=== PATIENT | female | born 1990 | race American Indian/Alaskan Native ===

== ENCOUNTER 2019-05-27 20:16 | Inpatient (IN) | payer BC ==
[2019-05-27] MEDS ORDERED: OXYTOCIN DRIP 30,000 MILLIUNITS/500 ML BAG IV ONE (23:41)
[2019-05-27] MEDS ORDERED: AMPICILLIN/NS 2 GM/100 ML 2 GM/100 ML BAG IV ONE (23:43)
[2019-05-27] MEDS ORDERED: BUTORPHANOL 2 MG/1 ML INJ IV PRN (23:43)
[2019-05-27] MEDS ORDERED: LACTATED RINGERS 1,000 ML IV SCH (23:45)
[2019-05-27 23:55] LABS: Basophils # (Auto) 0.1 K/mm3 (0.0-0.1); Basophils % (Auto) 0.6 % (0.0-1.8); Eosinophils # (Auto) 0.1 K/mm3 (0.0-0.4); Eosinophils % (Auto) 0.7 % (0.0-4.3); Hematocrit 34.1 % (30.3-42.9); Hemoglobin 11.6 gm/dl (10.1-14.3); Lymphocytes # (Auto) 1.6 K/mm3 (1.2-5.4); Lymphocytes % (Auto) 16.5 % (13.4-35.0); Mean Corpuscular HGB Conc 34 % (30-34); Mean Corpuscular Volume 94 fl (79-97); Monocytes # (Auto) 0.8 K/mm3 (0.0-0.8); Monocytes % (Auto) 7.8 % (0.0-7.3); Platelet Count 167 K/mm3 (140-440); Red Blood Count 3.62 M/mm3 (3.65-5.03); Red Cell Distribution Width 13.9 % (13.2-15.2)
--- NOTE | 2019-05-28 07:38 | History and Physical Report ---
History of Present Illness Date of examination: 05/28/19 Date of admission: 05/27/19 20:16 Chief complaint: Induction of labor History of present illness: Pt is a 28yo BF EDC 06/14/19; EGA 37 4/7 weeks presents for induction of labor per [facility] due to Umbilical vein varix. She received care at [facility] since 14 weeks and co-managed by [facility] for Umbilical vein varix. records are available, but [facility] records are not available and GBS is unknown. Past History Past Medical History: no pertinent history Past Surgical History: no surgical history Social history: no significant social history, - Obstetrical History Expected Date of Delivery: 06/14/19 Actual Gestation: 37 Week(s) 4 Day(s) : 1 Medications and Allergies Allergies Allergy/AdvReac Type Severity Reaction Status Date / Time No Known Allergies Allergy Unverified 05/27/19 21:02 Home Medications Medication Instructions Recorded Confirmed Last Taken Type No Known Home Medications [No 05/28/19 05/28/19 Unknown History Reported Home Medications] Active Meds: Active Medications Butorphanol Tartrate (Stadol) 1 mg IV Q2H PRN PRN Reason: Pain, Moderate (4-6) Lactated Ringer's (Lactated Ringers) 1,000 mls @ 125 mls/hr IV DIRECT GINO Last Admin: 05/28/19 00:48 Dose: 125 mls/hr Documented by: Oxytocin/Sodium Chloride (Pitocin/Ns 30 Unit/500ml) 30,000 milliunits in 500 mls @ 1 mls/hr IV DIRECT ONE; Protocol Stop: 06/17/19 19:40 Last Titration: 05/28/19 04:17 Dose: 4 milliunits/min, 4 mls/hr Documented by: Review of Systems All systems: negative - Vital Signs Vital signs: Vital Signs Pulse BP 71 108/77 05/27/19 21:59 05/27/19 21:59 Temp Pulse Resp BP Pulse Ox 98.8 F 65 18 111/83 05/27/19 22:00 05/28/19 07:01 05/27/19 22:00 05/28/19 07:01 - Physical Exam Breasts: Positive: deferred Cardiovascular: Regular rate Lungs: Positive: Clear to auscultation Abdomen: Positive: normal appearance Genitourinary (Female): Positive: normal external genitalia Vagina: Positive: normal moisture Uterus: Positive: enlarged Extremities: Positive: normal - Obstetrical FHR: category 1 Uterine Contraction Monitor Mode: External Cervical Dilatation: 2 (per nurse) Cervical Effacement Percentage: 50 (per nurse) station: -2 Uterine Contraction Pattern: Irregular Uterine Tone Measurement Phase: Contraction Uterine Contraction Intensity: Mild Results Result Diagrams: 05/27/19 22:56 Abnormal lab results 05/27/19 Range/Units 22:56 RBC 3.62 L (3.65-5.03) M/mm3 [place] % (Auto) 7.8 H (0.0-7.3) % Seg Neutrophils % 74.4 H (40.0-70.0) % All other labs normal. Assessment and Plan - Patient Problems (1) 37 weeks gestation of Onset Date: 05/28/19 Current Visit: Yes Status: Acute Plan to address problem: A: IUP @ 37 4/7 weeks Umbilical vein varix - per [facility] Unknown GBS P: Admit for pitocin induction of labor IV Ampicillin
[2019-05-28] MEDS ORDERED: TERBUTALINE 1 MG/1 ML INJ SUB-Q PRN (08:00)
[2019-05-28] MEDS ORDERED: TERBUTALINE 1 MG/1 ML INJ IVP PRN (08:00)
[2019-05-28] MEDS ORDERED: OXYTOCIN DRIP 30 UNITS/500 ML BAG IV SCH ×2 (08:00)
[2019-05-28] MEDS ORDERED: ONDANSETRON 4 MG/2 ML INJ IV PRN ×2 (08:00→18:02)
[2019-05-28] MEDS ORDERED: MINERAL OIL 30 ML ORAL LIQD PO PRN (08:00)
[2019-05-28] MEDS ORDERED: OXYTOCIN 20 UNIT/1000ML DRIP 20 UNITS/1,000 ML BAG IV SCH ×3 (08:00→20:00)
[2019-05-28] MEDS ORDERED: LIDOCAINE (2%) 20 MG/1 ML VIAL 20 ML MDV INFILTRATI NR (08:00)
[2019-05-28] MEDS ORDERED: ePHEDrine SULFATE 50 MG/1 ML INJ IV PRN ×2 (08:00→15:13)
[2019-05-28] MEDS: LACTATED RINGERS 1,000 ML IV SCH ×2 (09:51→13:57)
[2019-05-28] MEDS ORDERED: AMPICILLIN/NS 2 GM/100 ML 2 GM/100 ML BAG IV ONE (14:22)
[2019-05-28] MEDS ORDERED: NALOXONE 2 MG/2 ML INJ IV PRN (15:13)
--- NOTE | 2019-05-28 15:22 | Anesthesia Consultation ---
Anesthesia Consult and Med Hx Date of service: 05/28/19 - Airway Anesthetic Teeth Evaluation: Poor ROM Head & Neck: Adequate Mental/Hyoid Distance: Adequate Mallampati Class: Class II Intubation Access Assessment: Probably Good - Pulmonary Exam CTA: Yes - Cardiac Exam Cardiac Exam: RRR - Pre-Operative Health Status ASA Pre-Surgery Classification: ASA2 Proposed Anesthetic Plan: Epidural - Pulmonary Hx Smoking: No Hx Asthma: No Hx Respiratory Symptoms: No SOB: No COPD: No Home Oxygen Therapy: No Hx Pneumonia: No Hx Sleep Apnea: No - Cardiovascular System Hx Hypertension: No Hx Coronary Artery Disease: No Hx Heart Attack/AMI: No Hx Angina: No Hx Percutaneous Transluminal Coronary Angioplasty (PTCA): No Hx Cardia Arrhythmia: No Hx Pacemaker: No Hx Internal Defibrillator: No Hx Valvular Heart Disease: No Hx Heart Murmur: No Hx Peripheral Vascular Disease: No - Central Nervous System Hx Neuromuscular Disorder: No Hx Seizures: No CVA: No Hx Back Pain: No Hx Psychiatric Problems: No - Gastrointestinal Hx Ulcer: No Hx Gastroesophageal Reflux Disease: No - Endocrine Hx Renal Disease: No Hx End Stage Renal Disease: No Hx Cirrhosis: No Hx Liver Disease: No Hx Insulin Dependent Diabetes: No Hx Non-Insulin Dependent Diabetes: No Hx Thyroid Disease: No Hx Hypothyroidism: No Hx Hyperthyroidism: No - Hematic Hx Anemia: No Hx Sickle Cell Disease: No - Other Systems Hx Alcohol Use: Yes Hx Substance Use: No Hx Cancer: No Hx Obesity: No
[2019-05-28] MEDS ORDERED: fentaNYL-BUPIV 2 MCG/ML-0.125% 200 MCG/100 ML BAG EPIDURAL SCH (16:00)
[2019-05-28] MEDS ORDERED: METOCLOPRAMIDE 10 MG/2 ML INJ IV ONE (17:30)
[2019-05-28] MEDS ORDERED: FAMOTIDINE 20 MG/2 ML INJ IV ONE (17:30)
[2019-05-28] MEDS ORDERED: BICITRA ORAL LIQD 30ML PO ONE (17:30)
--- NOTE | 2019-05-28 17:32 | Progress Note ---
Assessment and Plan - Patient Problems (1) 37 weeks gestation of Onset Date: 05/28/19 Current Visit: Yes Status: Acute Plan to address problem: A: IUP @ 37 4/7 weeks Umbilical vein varix - per [facility] Unknown GBS P: Will proceed with a Primary C Section for a Non-reassuring tracing. Subjective - Subjective Date of service: 05/28/19 Principal diagnosis: IUP @ 37 4/7 weeks; Non -reassuring surveillance Interval history: Pt is a 28yo BF EDC 06/14/19; EGA 37 4/7 weeks presents for induction of labor per due to [facility]. She was on pitocin 16mu/min and arely q 3-4 mins with late decelerations, so pitocin is now off and we will proceed with a C Section due to non-reassuring surveillance. Patient reports: movement normal, contractions, no new complaints, no vaginal bleeding Objective - Vital Signs Vital Signs: Vital Signs - 12hr 05/28/19 05/28/19 05/28/19 06:00 07:01 07:20 Temperature 98.1 F Pulse Rate 74 65 Respiratory 18 Rate Blood Pressure 100/72 111/83 O2 Sat by Pulse Oximetry 05/28/19 05/28/19 05/28/19 08:00 09:36 10:00 Temperature Pulse Rate 69 85 76 Respiratory Rate Blood Pressure 102/75 103/74 108/75 O2 Sat by Pulse Oximetry 05/28/19 05/28/19 05/28/19 10:18 10:19 10:24 Temperature Pulse Rate 84 78 83 Respiratory Rate Blood Pressure O2 Sat by Pulse 93 99 99 Oximetry 05/28/19 05/28/19 05/28/19 10:29 10:34 10:39 Temperature Pulse Rate 84 94 H 90 Respiratory Rate Blood Pressure O2 Sat by Pulse 99 99 98 Oximetry 05/28/19 05/28/19 05/28/19 10:44 10:49 10:54 Temperature Pulse Rate 91 H 86 81 Respiratory Rate Blood Pressure O2 Sat by Pulse 98 99 99 Oximetry 05/28/19 05/28/19 05/28/19 10:59 11:04 11:09 Temperature Pulse Rate 77 84 73 Respiratory Rate Blood Pressure O2 Sat by Pulse 100 100 100 Oximetry 05/28/19 05/28/19 05/28/19 11:14 11:19 11:24 Temperature Pulse Rate 89 87 84 Respiratory Rate Blood Pressure O2 Sat by Pulse 99 100 100 Oximetry 05/28/19 05/28/19 05/28/19 11:29 11:34 11:39 Temperature Pulse Rate 80 83 87 Respiratory Rate Blood Pressure 100/65 O2 Sat by Pulse 99 100 99 Oximetry 05/28/19 05/28/19 05/28/19 11:44 11:49 11:54 Temperature Pulse Rate 86 86 89 Respiratory Rate Blood Pressure O2 Sat by Pulse 99 100 100 Oximetry 05/28/19 05/28/19 05/28/19 12:06 12:11 12:16 Temperature Pulse Rate 94 H 90 79 Respiratory Rate Blood Pressure O2 Sat by Pulse 99 100 99 Oximetry 05/28/19 05/28/19 05/28/19 12:21 12:26 12:30 Temperature Pulse Rate 83 77 72 Respiratory Rate Blood Pressure 109/64 O2 Sat by Pulse 98 97 Oximetry 05/28/19 05/28/19 05/28/19 12:31 12:36 12:41 Temperature Pulse Rate 84 77 76 Respiratory Rate Blood Pressure O2 Sat by Pulse 97 99 98 Oximetry 05/28/19 05/28/19 05/28/19 12:46 12:51 12:56 Temperature Pulse Rate 69 70 65 Respiratory Rate Blood Pressure O2 Sat by Pulse 98 97 98 Oximetry 05/28/19 05/28/19 05/28/19 12:59 13:01 13:06 Temperature Pulse Rate 66 69 67 Respiratory Rate Blood Pressure 100/66 O2 Sat by Pulse 98 99 Oximetry 05/28/19 05/28/19 05/28/19 13:11 13:16 13:20 Temperature Pulse Rate 66 71 80 Respiratory Rate Blood Pressure O2 Sat by Pulse 98 97 87 Oximetry 05/28/19 05/28/19 05/28/19 13:21 13:26 13:31 Temperature Pulse Rate 80 70 85 Respiratory Rate Blood Pressure O2 Sat by Pulse 98 100 99 Oximetry 05/28/19 05/28/19 05/28/19 13:39 13:44 13:45 Temperature Pulse Rate 80 78 100 H Respiratory Rate Blood Pressure O2 Sat by Pulse 96 100 93 Oximetry 05/28/19 05/28/19 05/28/19 13:49 13:54 13:56 Temperature Pulse Rate 73 87 101 H Respiratory Rate Blood Pressure O2 Sat by Pulse 99 100 93 Oximetry 05/28/19 05/28/19 05/28/19 13:59 14:04 14:07 Temperature Pulse Rate 81 82 100 H Respiratory Rate Blood Pressure 112/69 O2 Sat by Pulse 99 99 86 Oximetry 05/28/19 05/28/19 05/28/19 14:09 14:13 14:14 Temperature Pulse Rate 76 92 H 104 H Respiratory Rate Blood Pressure O2 Sat by Pulse 100 84 100 Oximetry 05/28/19 05/28/19 05/28/19 14:19 14:24 14:26 Temperature Pulse Rate 97 H 82 109 H Respiratory Rate Blood Pressure O2 Sat by Pulse 93 97 91 Oximetry 05/28/19 05/28/19 05/28/19 14:29 14:31 14:34 Temperature Pulse Rate 95 H 100 H 99 H Respiratory Rate Blood Pressure 119/83 O2 Sat by Pulse 98 100 Oximetry 05/28/19 05/28/19 05/28/19 14:37 14:38 14:39 Temperature Pulse Rate 97 H 95 H 93 H Respiratory Rate Blood Pressure 108/70 114/73 O2 Sat by Pulse 100 Oximetry 05/28/19 05/28/19 05/28/19 14:40 14:42 14:44 Temperature Pulse Rate 100 H 90 83 Respiratory Rate Blood Pressure 113/74 115/73 113/74 O2 Sat by Pulse 100 Oximetry 05/28/19 05/28/19 05/28/19 14:46 14:49 14:51 Temperature Pulse Rate 93 H 84 86 Respiratory Rate Blood Pressure 110/74 117/83 109/69 O2 Sat by Pulse 100 Oximetry 05/28/19 05/28/19 05/28/19 14:54 14:57 14:59 Temperature Pulse Rate 75 73 83 Respiratory Rate Blood Pressure 105/61 95/54 O2 Sat by Pulse 100 100 Oximetry 05/28/19 05/28/19 05/28/19 15:00 15:02 15:04 Temperature Pulse Rate 68 69 68 Respiratory Rate Blood Pressure 94/55 92/52 O2 Sat by Pulse 100 Oximetry 05/28/19 05/28/19 05/28/19 15:05 15:08 15:09 Temperature Pulse Rate 71 71 70 Respiratory Rate Blood Pressure 125/62 108/64 O2 Sat by Pulse 100 Oximetry 05/28/19 05/28/19 05/28/19 15:11 15:13 15:14 Temperature Pulse Rate 69 64 63 Respiratory Rate Blood Pressure 109/69 106/67 O2 Sat by Pulse 99 Oximetry 05/28/19 05/28/19 05/28/19 15:15 15:17 15:19 Temperature Pulse Rate 64 61 60 Respiratory Rate Blood Pressure 112/73 118/70 111/69 O2 Sat by Pulse 100 Oximetry 05/28/19 05/28/19 05/28/19 15:20 15:22 15:24 Temperature Pulse Rate 65 58 L 60 Respiratory Rate Blood Pressure 112/73 113/77 110/75 O2 Sat by Pulse 100 Oximetry 05/28/19 05/28/19 05/28/19 15:27 15:29 15:30 Temperature Pulse Rate 64 64 63 Respiratory Rate Blood Pressure 108/81 108/82 115/83 O2 Sat by Pulse Oximetry 05/28/19 05/28/19 05/28/19 15:32 15:36 15:37 Temperature Pulse Rate 60 46 L 53 L Respiratory Rate Blood Pressure 107/78 O2 Sat by Pulse 93 93 Oximetry 05/28/19 05/28/19 05/28/19 15:42 15:47 15:52 Temperature Pulse Rate 58 L 58 L 58 L Respiratory Rate Blood Pressure O2 Sat by Pulse 100 100 100 Oximetry 05/28/19 05/28/19 05/28/19 15:57 16:02 16:04 Temperature Pulse Rate 71 59 L 68 Respiratory Rate Blood Pressure 115/74 O2 Sat by Pulse 100 100 Oximetry 05/28/19 05/28/19 05/28/19 16:07 16:10 16:12 Temperature Pulse Rate 72 70 71 Respiratory Rate Blood Pressure O2 Sat by Pulse 100 94 95 Oximetry 05/28/19 05/28/19 05/28/19 16:17 16:20 16:22 Temperature Pulse Rate 66 68 67 Respiratory Rate Blood Pressure O2 Sat by Pulse 100 89 97 Oximetry 05/28/19 05/28/19 05/28/19 16:27 16:30 16:32 Temperature Pulse Rate 71 68 66 Respiratory Rate Blood Pressure O2 Sat by Pulse 100 94 100 Oximetry 05/28/19 05/28/19 05/28/19 16:35 16:37 16:42 Temperature Pulse Rate 65 67 59 L Respiratory Rate Blood Pressure 101/67 O2 Sat by Pulse 99 99 Oximetry 02/05/28/19 05/28/19 16:47 16:52 16:57 Temperature Pulse Rate 67 60 69 Respiratory Rate Blood Pressure O2 Sat by Pulse 100 99 99 Oximetry 05/28/19 05/28/19 05/28/19 17:02 17:04 17:07 Temperature Pulse Rate 59 L 53 L 54 L Respiratory Rate Blood Pressure 108/72 O2 Sat by Pulse 99 99 Oximetry 05/28/19 05/28/19 05/28/19 17:10 17:12 17:17 Temperature Pulse Rate 68 80 76 Respiratory Rate Blood Pressure O2 Sat by Pulse 82 L 100 100 Oximetry 05/28/19 05/28/19 17:22 17:27 Temperature Pulse Rate 61 95 H Respiratory Rate Blood Pressure O2 Sat by Pulse 100 100 Oximetry - Exam Uterus: Present: normal FHR: category 2 Uterine Contraction Monitor Mode: External Cervical Dilatation: 4 Cervical Effacement Percentage: 60 station: -2 Uterine Contraction Pattern: Regular Uterine Tone Measurement Phase: Contraction Uterine Contraction Intensity: Moderate - Labs Labs: Abnormal Labs 05/27/19 22:56 RBC 3.62 L [place] % (Auto) 7.8 H Seg Neutrophils % 74.4 H Laboratory Results - last 24 hr 05/27/19 05/27/19 05/28/19 22:56 22:56 09:17 WBC 9.9 RBC 3.62 L Hgb 11.6 Hct 34.1 MCV 94 MCH 32 MCHC 34 RDW 13.9 Plt Count 167 Lymph % (Auto) 16.5 [place] % (Auto) 7.8 H Eos % (Auto) 0.7 Baso % (Auto) 0.6 Lymph # 1.6 [place] # 0.8 Eos # 0.1 Baso # 0.1 Seg Neutrophils % 74.4 H Seg Neutrophils # 7.3 Hep Bs Antigen Non-reactive Blood Type O POSITIVE Antibody Screen Negative
[2019-05-28] MEDS ORDERED: LIDOCAINE 2%/EPINEPHRINE 1:200,000 VIAL (20 ML) INFILTRATI ONE (17:37)
[2019-05-28] MEDS ORDERED: DEXMEDETOMIDINE 200 MCG/2 ML VIAL IV ONE (17:37)
[2019-05-28] MEDS ORDERED: AMPICILLIN/NS 1 GM/50 ML 1 GM/50 ML BAG IV SCH (18:00)
[2019-05-28] MEDS ORDERED: LACTATED RINGERS 1,000 ML IV SCH (18:00)
[2019-05-28] MEDS ORDERED: ceFAZolin/Water 2 GM/20 ML 2 GM/20 ML SYRINGE IV NR (18:00)
--- NOTE | 2019-05-28 18:02 | Anesthesia Day of Surgery ---
Anesthesia Day of Surgery - Day of Surgery Patient Examined: Yes Patient H&P Reviewed: Yes Patient is NPO: Yes Beta Blockers: No Cardiac Clearance: No Pulmonary Clearance: No Vincenzo's Test: N/A
[2019-05-28] MEDS ORDERED: WATER FOR IRRIG STERILE 1,500 ML BOTTLE IR ONE (18:45)
[2019-05-28] MEDS ORDERED: SODIUM CHLORIDE 0.9% IRR 1,500 ML BOTTLE IR ONE (18:45)
[2019-05-28] MEDS ORDERED: KETOROLAC 30 MG/1 ML INJ ONE (18:58)
[2019-05-28] MEDS ORDERED: ONDANSETRON 4 MG/2 ML INJ ONE (18:58)
[2019-05-28] MEDS ORDERED: PHENYLEPHRINE/NS 1,000 MCG/10 ML SYRINGE (OR USE) IV ONE (19:02)
--- NOTE | 2019-05-28 19:16 | Operative Report ---
Operative Report Operative Report: Date of procedure: 05/05/2019 Pre-operative diagnosis: 1. Intrauterine at 37 4/7 weeks 2. Non- Reassuring surveillance Post-operative diagnosis: same Procedure name(s): 1. Primary low transverse section Surgeon: Rafy Reyes MD Lime Mixer: None Anesthesia: Epidural anesthesia by Bart Reed CRNA EBL: 600 mL's Findings: A 2847gm female infant Apgars 8 at 1 minute 9 at 5 minutes. Clear amniotic fluid. Normal uterus with normal tubes and ovaries bilaterally. Procedure: After a satisfactory level of epidural anesthesia was obtained, the patient was prepped and draped in usual sterile fashion and the skin knife was used to make a transverse skin incision. The incision was incised down to layer of the fascia, which was nicked in the midline and extended laterally using the Bovie cautery. The rectus muscles were dissected off the rectus fascia both superiorly and inferiorly. The rectus bellies in the midline, and the peritoneum was entered under direct visualization. The peritoneal incision was extended superiorly and inferiorly. A bladder flap was created and the bladder blade was then placed. The uterus was scored in a curvilinear linear fashion, entered in the midline revealing clear amniotic fluid. The 's head was de livered onto the surgical field, the oropharynx and nasopharynx bulb suctioned, the rest of the 's body was delivered, cord was doubly clamped and cut and the infant was handed to the awaiting respiratory team. The placenta was manually removed from the uterus, and the uterus removed from its normal anatomical position. After gentle uterine lavage, the incision was inspected and found to be without extensions. It was then closed in 2 layers using 0 Vicryl suture in a running interlocking fashion, the second layer imbricating the first. After good hemostasis was achieved, copious amounts or irrigation was performed, and the gutters were suctioned free of blood and blood clots. The uterus was then returned to its normal anatomical position. Next, the peritoneum was re-approximated using 3-0 Vicryl suture in a running interlocking fashion, and then the rectus muscles were loosely re-approximated using 3-0 Vicryl suture in a [id number] configuration. The fascia was then re- approximated using 0 Vicryl suture in running interlocking fashion. The subcutaneous layer was made hemostatic using Bovie cautery, and the skin edges re-approximated using 4-0 Vicryl suture in a sub-cuticular fashion. Patient tolerated the procedure well was transported to recovery in stable condition.
[2019-05-28] MEDS ORDERED: MORPHINE 4 MG/1 ML INJ IV PRN (19:18)
[2019-05-28] MEDS ORDERED: KETOROLAC 30 MG/1 ML INJ IV PRN (19:18)
[2019-05-28] MEDS ORDERED: WITCH HAZEL/ GLYCERIN PAD TP PRN (19:18)
[2019-05-28] MEDS ORDERED: LANOLIN/ZINC/DIMETHICONE (LANSINOH) 7 GM TP PRN (19:18)
[2019-05-28] MEDS ORDERED: MAGNESIUM HYDROXIDE (MOM) ORAL LIQD UDC PO PRN (19:18)
[2019-05-28] MEDS ORDERED: NALOXONE 0.4 MG/1 ML INJ IV PRN (19:18)
[2019-05-28] MEDS ORDERED: SIMETHICONE 80 MG CHEW TAB PO PRN (19:18)
[2019-05-28] MEDS ORDERED: ACETAMINOPHEN 325 MG TAB PO PRN (19:18)
[2019-05-28] MEDS ORDERED: HYDROcodone/ACETAMINOPHEN 5-325 MG TAB PO PRN (19:18)
[2019-05-28] MEDS: HYDROmorphone 1 MG/1 ML INJ IV PRN ×2 (20:22→21:00)
[2019-05-28] MEDS: oxyCODONE /ACETAMINOPHEN 5-325MG TAB PO PRN (22:57)
[2019-05-29] MEDS: ceFAZolin/NS 1 GM/50 ML 1 GM/50 ML BAG IV SCH ×2 (01:02→07:43)
[2019-05-29] MEDS: D5W/LACTATED RINGERS 1,000 ML IV SCH ×2 (01:02→09:36)
[2019-05-29] MEDS ORDERED: TETANUS,DIPH,PERTUSS(ACELL) VACCINE 0.5 ML SYRINGE IM ONE ×2 (06:30→19:21)
[2019-05-29] MEDS: oxyCODONE /ACETAMINOPHEN 5-325MG TAB PO PRN ×2 (07:40→15:57)
[2019-05-29 09:31] LABS: Hematocrit 28.5 % (30.3-42.9); Hemoglobin 9.5 gm/dl (10.1-14.3)
[2019-05-29] MEDS: PRENATAL VIT27-FE FUMARATE-FOLIC ACID VIT TAB PO SCH (09:38)
[2019-05-29] MEDS: IBUPROFEN 800 MG TAB PO PRN ×2 (09:38→21:20)
[2019-05-29] MEDS: FERROUS SULFATE 325 MG TAB PO SCH (09:38)
--- NOTE | 2019-05-29 12:37 | Progress Note ---
Assessment and Plan - Patient Problems (1) 37 weeks gestation of Onset Date: 05/28/19 Current Visit: Yes Status: Resolved (2) Status post Onset Date: 05/29/19 Current Visit: Yes Status: Resolved Plan to address problem: A: S/P C Section - POD #1 Doing well Asymptomatic anemia - stable P: Continue RPOC Anticipate discharge in 24-48hrs (3) Acute blood loss anemia Onset Date: 05/29/19 Current Visit: Yes Status: Resolved Subjective - Subjective Date of service: 05/29/19 Principal diagnosis: s/p C Section - POD #1 Interval history: Pt is feeling well without complaints. Bleeding improved. Patient reports: appetite normal, voiding normally, pain well controlled, ambulating normally, no dizzy ambulation, no flatus, no nauseated [place]: doing well, bottle feeding Objective - Vital Signs Latest vital signs: Vital Signs Temp Pulse Resp BP BP BP Pulse Ox 05/29/19 08:20 98.2 F 73 18 87/54 05/29/19 05:36 97.7 F 84 20 91/63 97 05/28/19 21:25 99.4 F 66 18 90/63 97 05/28/19 20:45 99.4 F 73 13 103/68 100 05/28/19 20:30 70 13 100/70 98 05/28/19 20:15 68 14 95/65 99 05/28/19 20:00 72 10 L 90/53 99 05/28/19 19:45 69 11 L 92/60 96 05/28/19 19:41 64 17 118/66 100 05/28/19 19:36 53 L 12 111/68 100 05/28/19 19:31 97.9 F 78 14 90/51 100 05/28/19 18:12 78 100 05/28/19 18:07 75 99 05/28/19 18:03 68 101/65 05/28/19 18:02 83 100 05/28/19 17:57 71 100 05/28/19 17:52 65 100 05/28/19 17:48 67 98/67 05/28/19 17:47 86 100 05/28/19 17:42 73 100 05/28/19 17:37 83 100 05/28/19 17:32 80 100 05/28/19 17:27 95 H 100 05/28/19 17:22 61 100 05/28/19 17:17 76 100 05/28/19 17:12 80 100 05/28/19 17:10 68 82 L 05/28/19 17:07 54 L 99 05/28/19 17:04 53 L 108/72 05/28/19 17:02 59 L 99 05/28/19 16:57 69 99 05/28/19 16:52 60 99 05/28/19 16:47 67 100 05/28/19 16:42 59 L 99 05/28/19 16:37 67 99 05/28/19 16:35 65 101/67 05/28/19 16:32 66 100 05/28/19 16:30 68 94 05/28/19 16:27 71 100 05/28/19 16:22 67 97 05/28/19 16:20 68 89 05/28/19 16:17 66 100 05/28/19 16:12 71 95 05/28/19 16:10 70 94 05/28/19 16:07 72 100 05/28/19 16:04 68 115/74 05/28/19 16:02 59 L 100 05/28/19 15:57 71 100 05/28/19 15:52 58 L 100 05/28/19 15:47 58 L 100 05/28/19 15:42 58 L 100 05/28/19 15:37 53 L 93 05/28/19 15:36 46 L 93 05/28/19 15:32 60 107/78 05/28/19 15:30 63 115/83 05/28/19 15:29 64 108/82 05/28/19 15:27 64 108/81 05/28/19 15:24 60 110/75 100 05/28/19 15:22 58 L 113/77 05/28/19 15:20 65 112/73 05/28/19 15:19 60 111/69 100 05/28/19 15:17 61 118/70 05/28/19 15:15 64 112/73 05/28/19 15:14 63 99 05/28/19 15:13 64 106/67 05/28/19 15:11 69 109/69 05/28/19 15:09 70 100 05/28/19 15:08 71 108/64 05/28/19 15:05 71 125/62 05/28/19 15:04 68 100 05/28/19 15:02 69 92/52 05/28/19 15:00 68 94/55 05/28/19 14:59 83 95/54 100 05/28/19 14:57 73 105/61 05/28/19 14:54 75 100 05/28/19 14:51 86 109/69 05/28/19 14:49 84 117/83 100 05/28/19 14:46 93 H 110/74 05/28/19 14:44 83 113/74 100 05/28/19 14:42 90 115/73 05/28/19 14:40 100 H 113/74 05/28/19 14:39 93 H 100 05/28/19 14:38 95 H 114/73 05/28/19 14:37 97 H 108/70 05/28/19 14:34 99 H 100 05/28/19 14:31 100 H 119/83 05/28/19 14:29 95 H 98 05/28/19 14:26 109 H 91 05/28/19 14:24 82 97 05/28/19 14:19 97 H 93 05/28/19 14:14 104 H 100 05/28/19 14:13 92 H 84 05/28/19 14:09 76 100 05/28/19 14:07 100 H 86 05/28/19 14:04 82 99 05/28/19 13:59 81 112/69 99 05/28/19 13:56 101 H 93 05/28/19 13:54 87 100 05/28/19 13:49 73 99 05/28/19 13:45 100 H 93 05/28/19 13:44 78 100 05/28/19 13:39 80 96 05/28/19 13:31 85 99 05/28/19 13:26 70 100 05/28/19 13:21 80 98 05/28/19 13:20 80 87 05/28/19 13:16 71 97 05/28/19 13:11 66 98 05/28/19 13:06 67 99 05/28/19 13:01 69 98 05/28/19 12:59 66 100/66 05/28/19 12:56 65 98 05/28/19 12:51 70 97 05/28/19 12:46 69 98 02/25/20 12:41 76 98 Intake and Output 05/28/19 05/29/19 05/29/19 22:59 06:59 14:59 Intake Total 271 768 4887 Output Total 350 400 400 Balance 504 -110 720 Intake: IV 185 85 9293 ANCEF/NS 1 GM/50 ML 1 gm 50 In 50 ml @ 100 mls/hr IV Q8H GINO Rx#:[id number] D5lr 1,000 ml @ 125 mls/ 1000 hr IV DIRECT GINO Rx#: [id number] PITOCin/NS 30 UNIT/500ML 54 30 units In 500 ml @ 4 mls/hr IV TITR GINO Rx#: [id number] Oral 240 120 Output: Urine 350 400 400 Indwelling 175 Indwelling Catheter 400 Void 400 Other: Total, Intake Amount 240 120 Total, Output Amount 400 400 # Voids Void 2 - Exam Breasts: Present: deferred Abdomen: Present: normal appearance, soft Uterus: Present: normal, firm, fundal height below umbilicus Extremities: Present: normal Incision: Present: normal, dry, intact, dressed - Labs Labs: Abnormal lab results 05/29/19 Range/Units 08:25 Hgb 9.5 L (10.1-14.3) gm/dl Hct 28.5 L (30.3-42.9) % Laboratory Tests 05/27/19 05/27/19 05/28/19 22:56 22:56 09:17 WBC 9.9 RBC 3.62 L Hgb 11.6 Hct 34.1 MCV 94 MCH 32 MCHC 34 RDW 13.9 Plt Count 167 Lymph % (Auto) 16.5 [place] % (Auto) 7.8 H Eos % (Auto) 0.7 Baso % (Auto) 0.6 Lymph # 1.6 [place] # 0.8 Eos # 0.1 Baso # 0.1 Seg Neutrophils % 74.4 H Seg Neutrophils # 7.3 Hep Bs Antigen Non-reactive Blood Type O POSITIVE Antibody Screen Negative 05/29/19 05/29/19 08:25 08:25 WBC RBC Hgb 9.5 L Hct 28.5 L MCV MCH MCHC RDW Plt Count Lymph % (Auto) [place] % (Auto) Eos % (Auto) Baso % (Auto) Lymph # [place] # Eos # Baso # Seg Neutrophils % Seg Neutrophils # Hep Bs Antigen Non-reactive Blood Type Antibody Screen
[2019-05-29] MEDS ORDERED: MEASLES, MUMPS & RUBELLA 12,500 UNIT/0.5 ML VACCINE SUB-Q ONE (19:21)
--- NOTE | 2019-05-29 21:00 | Post Anesthesia Evaluation ---
- Post Anesthesia Evaluation Patient Participated: Yes Airway Patent: Yes Stable Respiratory Function: Yes Nausea/Vomiting: No Temp > 96.8F: Yes Pain Manageable: Yes Adequeate Hydration: Yes Anesthesia Complications: No Block Receding Appropriately: Yes
[2019-05-30] MEDS: IBUPROFEN 800 MG TAB PO PRN ×2 (05:29→14:24)
--- NOTE | 2019-05-30 10:22 | Progress Note ---
Assessment and Plan - Patient Problems (1) 37 weeks gestation of Onset Date: 05/28/19 Current Visit: Yes Status: Resolved (2) Status post Onset Date: 05/29/19 Current Visit: Yes Status: Resolved Plan to address problem: A: S/P C Section - POD #2 Doing well Asymptomatic anemia - stable P: May go home today. (3) Acute blood loss anemia Onset Date: 05/29/19 Current Visit: Yes Status: Resolved Subjective - Subjective Date of service: 05/30/19 Principal diagnosis: s/p C Section - POD #2 Interval history: Pt is feeling well without complaints. She is tolerating a reg diet without nausea or vomiting, ambulating and voiding without difficulty. Patient reports: appetite normal, voiding normally, pain well controlled, flatus, ambulating normally, no dizzy ambulation, no nauseated [place]: doing well, nursing well, bottle feeding Objective - Vital Signs Latest vital signs: Vital Signs Temp Pulse Resp BP BP Pulse Ox 05/30/19 08:40 98.1 F 73 20 110/83 97 05/30/19 01:40 97.7 F 72 20 102/71 98 05/29/19 15:55 98.2 F 78 20 107/71 Intake and Output 05/29/19 05/30/19 05/30/19 22:59 06:59 14:59 Intake Total 560 240 Balance 560 240 Intake: Oral 560 240 Other: Total, Intake Amount 240 240 # Voids Void 1 - Exam Abdomen: Present: normal appearance, soft Uterus: Present: normal, firm, fundal height below umbilicus Extremities: Present: normal Incision: Present: normal, dry, intact
--- NOTE | 2019-05-30 11:27 | Discharge Summary ---
Providers - Providers Date of Admission: 05/27/19 20:16 Date of discharge: 05/30/19 Attending physician: JJ JULIAN Primary care physician: JJ JULIAN Hospitalization Reason for admission: induction of labor, IUP at term Delivery: Procedure: section, primary low transverse Episiotomy: none Laceration: none Incision: normal, dry, intact Other procedures: none complications: none Discharge diagnosis: IUP at term delivered [place] baby: female Hospital course: Pt is a 28yo BF EDC 06/14/19; EGA 37 4/7 weeks who presented for induction of labor per [facility] due to Umbilical vein varix. She received care at [facility] since 14 weeks and co-managed by [facility] for Umbilical vein varix. She was admitted and induced with pitocin, but developed a non- reassuring tracing requiring delivery by an uncomplicated C Section. Post operative course was uneventful, and by POD #2 she was tolerating a reg diet without nausea or vomiting, ambulating and voiding without difficulty. She was therefore discharged to home on POD #2 in stable condition. Condition at discharge: Good Disposition: DC-01 TO HOME OR SELFCARE - Discharge Diagnoses (1) 37 weeks gestation of Status: Resolved (2) Status post Status: Resolved (3) Acute blood loss anemia Status: Resolved Plan - Discharge Medications Prescriptions: Ferrous Sulfate [Feosol 325 MG tab] 325 mg PO BID #60 tablet Ibuprofen [Motrin 800 MG tab] 800 mg PO Q6H PRN #30 tablet PRN Reason: Pain, Mild (1-3) oxyCODONE /ACETAMINOPHEN [Percocet 5/325 mg] 1 tab PO Q6H PRN #30 tablet PRN Reason: Pain, Moderate (4-6) Vit-Fe Fumar-FA [ Vitamin] 1 each PO QDAY #30 tablet - Provider Discharge Summary Activity: routine, no sex for 6 weeks, no heavy lifting 4 weeks, no strenuous exercise Diet: routine Instructions: routine Additional instructions: [] Smoking cessation referral if applicable(refer to patient education folder for contact #) [] Refer to [facility]'s [facility] Booklet Call your doctor immediately for: * Fever > 100.5 * Heavy vaginal bleeding ( >1 pad per hour) * Severe persistent headache * Shortness of breath * Reddened, hot, painful area to leg or breast * Drainage or odor from incision. * Keep incision clean and dry at all times and follow doctor's instructions regarding bathing/showering Make appointment for incision check in 1 week - Follow up plan Follow up: JJ JULIAN MD [Primary Care Provider] - 7 Days
[2019-05-30] MEDS: FERROUS SULFATE 325 MG TAB PO SCH (14:24)
[2019-05-30] MEDS: PRENATAL VIT27-FE FUMARATE-FOLIC ACID VIT TAB PO SCH (14:24)
[2019-05-30] MEDS: oxyCODONE /ACETAMINOPHEN 5-325MG TAB PO PRN (15:55)
[2019-05-30 16:33] VITALS: BP 109/76
== END 2019-05-30 16:30 | disposition home or self-care (01) | DRG 787 ==
LOC: LD 20:16 → OB 05-28 21:20
PROVIDERS: ADMIT Obstetrics & Gynecology; ATTEND Obstetrics & Gynecology
PROC: 10D00Z1 Extraction of Products of Conception, Low, Open Approach (ICD-10-PCS; principal; 2019-05-28)
PROC: 3E0234Z Introduction of Serum, Toxoid and Vaccine into Muscle, Percutaneous Approach (ICD-10-PCS; 2019-05-29)
PROC: 3E0134Z Introduction of Serum, Toxoid and Vaccine into Subcutaneous Tissue, Percutaneous Approach (ICD-10-PCS; 2019-05-29)
DX: O76 Abnormality in fetal heart rate and rhythm complicating labor and delivery (principal); D62 Acute posthemorrhagic anemia; O99.02 Anemia complicating childbirth; Z3A.37 37 weeks gestation of pregnancy; Z37.0 Single live birth; Z23 Encounter for immunization
CPT/HCPCS: 36415; 85014; 85018; 85025; 86706; 86850; 86900; 86901; 90471; 90715; G0378; J0290; J0595; J0690; J1170; J1885; J2370; J2405; J2590; J2765; J3490; J7120; J7121

== ENCOUNTER 2021-09-16 16:40 | Inpatient (IN) | payer OTHER ==
[2021-09-16] MEDS ORDERED: OXYTOCIN DRIP 30,000 MILLIUNITS/500 ML BAG IV ONE (17:33)
[2021-09-16] MEDS ORDERED: LACTATED RINGERS 1,000 ML ONE (17:33)
[2021-09-16] MEDS ORDERED: OXYTOCIN 10 UNIT/1 ML INJ ONE (17:58)
[2021-09-16] MEDS ORDERED: LIDOCAINE (2%) 20 MG/1 ML VIAL 20 ML MDV INFILTRATI ONE (17:59)
[2021-09-16] MEDS ORDERED: MORPHINE 4 MG/1 ML INJ ONE (18:03)
[2021-09-16] MEDS ORDERED: ACETAMINOPHEN 325 MG TAB PO PRN (18:36)
[2021-09-16] MEDS ORDERED: LANOLIN/ZINC/DIMETHICONE (LANSINOH) 7 GM TP PRN (18:36)
[2021-09-16] MEDS ORDERED: WITCH HAZEL/ GLYCERIN PAD TP PRN (18:36)
[2021-09-16] MEDS ORDERED: diphenhydrAMINE 25 MG CAP PO PRN (18:36)
[2021-09-16] MEDS ORDERED: PROMETHAZINE 25 MG RECT SUPP PR PRN (18:36)
[2021-09-16] MEDS ORDERED: HYDROcodone/ACETAMINOPHEN 5-325 MG TAB PO PRN (18:36)
[2021-09-16] MEDS ORDERED: KETOROLAC 30 MG/1 ML INJ IV PRN (18:36)
[2021-09-16] MEDS ORDERED: ONDANSETRON 4 MG/2 ML INJ IV PRN (18:36)
[2021-09-16] MEDS ORDERED: MAGNESIUM HYDROXIDE (MOM) ORAL LIQD UDC PO PRN (18:36)
[2021-09-16] MEDS ORDERED: PROMETHAZINE 25 MG TAB PO PRN (18:36)
--- NOTE | 2021-09-16 18:43 | History and Physical Report ---
History of Present Illness Date of examination: 09/16/21 Date of admission: 09/16/21 16:41 Chief complaint: In active labor.. 39 wks. Presented fully dilated with vertex at 0+3 station. Past History Past Medical History: no pertinent history Past Surgical History: section - Obstetrical History Expected Date of Delivery: 09/23/21 Actual Gestation: 39 Week(s) 0 Day(s) : 2 Para: 1 Number of Living Children: 1 Medications and Allergies Allergies Allergy/AdvReac Type Severity Reaction Status Date / Time No Known Allergies Allergy Unverified 09/15/21 17:05 Home Medications Medication Instructions Recorded Confirmed Last Taken Type Vit-Fe Fumar-FA [ 1 each PO QDAY #30 tablet 05/30/19 09/15/21 Unknown Rx Vitamin] Active Meds: Active Medications Acetaminophen (Acetaminophen 325 Mg Tab) 650 mg PO Q4H PRN PRN Reason: Pain MILD(1-3)/Fever >100.5/[place] Hydrocodone Bitart/Acetaminophen (Hydrocodone/Acetaminophen 5-325 Mg Tab) 2 each PO Q6H PRN PRN Reason: Pain, Moderate (4-6) Bisacodyl (Bisacodyl 10 Mg Rect Supp) 10 mg VT BID PRN PRN Reason: Constipation Diphenhydramine HCl (Diphenhydramine 25 Mg Cap) 25 mg PO Q6H PRN PRN Reason: Itching Docusate Sodium (Docusate Sodium 100 Mg Cap) 100 mg PO BID GINO Ibuprofen (Ibuprofen 800 Mg Tab) 800 mg PO Q6H GINO Ketorolac Tromethamine (Ketorolac 30 Mg/1 Ml Inj) 30 mg IV Q6H PRN PRN Reason: Pain, Moderate (4-6) Stop: 09/21/21 18:35 Magnesium Hydroxide (Magnesium Hydroxide (Mom) Oral Liqd Udc) 30 ml PO HS PRN PRN Reason: Constipation Multi-Ingredient Ointment (Lanolin/Zinc/Dimethicone (Lansinoh) 7 Gm) 1 applic TP PRN PRN PRN Reason: Sore Nipples Multivitamins/Iron/Calcium ( [id number]-Iz Fumarate-Folic Acid Vit Tab) 1 each PO QDAY GINO Ondansetron HCl (Ondansetron 4 Mg/2 Ml Inj) 4 mg IV Q8H PRN PRN Reason: Nausea And Vomiting Promethazine HCl (Promethazine 25 Mg Rect Supp) 25 mg VT Q6H PRN PRN Reason: Nausea And Vomiting Promethazine HCl (Promethazine 25 Mg Tab) 25 mg PO Q6H PRN PRN Reason: Nausea And Vomiting Sodium Chloride (Sodium Chloride 0.9% 10 Ml Flush Syringe) 10 ml IV PRN NR Witch Kelley/Glycerin (Witch Kelley/ Glycerin Pad) 1 each TP PRN PRN PRN Reason: Hemorrhoid/cleansing/soothing Review of Systems All systems: negative - Vital Signs Vital signs: Vital Signs Temp 99.1 F 09/16/21 17:28 Temp Pulse Resp BP Pulse Ox 99.1 F 85 116/69 09/16/21 17:28 09/16/21 18:38 09/16/21 18:38 - Obstetrical Cervical Dilatation: 10 station: 0+3 Results All other labs normal. Assessment and Plan - Patient Problems (1) Previous delivery affecting Current Visit: Yes Status: Acute (2) (vaginal after ) Current Visit: Yes Status: Acute Plan to address problem: Delivery shortly after arrival.
--- NOTE | 2021-09-16 18:44 | Procedure Note ---
OB Delivery Note - Delivery Date of Delivery: 09/16/21 Surgeon: CHRISTOPHER LUTZ Estimated blood loss: <100cc - Vaginal Delivery presentation: vertex Delivery position: OA Intrapartum events: none Delivery induction: none Delivery monitor: none Route of delivery: Delivery placenta: spontaneous Episiotomy: none Delivery laceration: 2nd degree (midline) Delivery repair: vicryl Anesthesia: local - A at 1 minute: 8 at 5 minutes: 9 Infant Gender: Female
[2021-09-17] MEDS: IBUPROFEN 800 MG TAB PO SCH ×4 (00:39→18:33)
[2021-09-17] MEDS: DOCUSATE SODIUM 100 MG CAP PO SCH ×2 (00:41→10:32)
[2021-09-17 05:26] LABS: Hematocrit 33.4 % (30.3-42.9); Hemoglobin 10.9 gm/dl (10.1-14.3)
[2021-09-17] MEDS: PRENATAL VIT27-FE FUMARATE-FOLIC ACID VIT TAB PO SCH (10:32)
--- NOTE | 2021-09-17 15:15 | Progress Note ---
Assessment and Plan A: PPD # 1 - stable P: She desires discharge today Discharge instructions given Subjective - Subjective Date of service: 09/17/21 Principal diagnosis: - PPD #1- stable Patient reports: appetite normal : doing well Objective - Vital Signs Latest vital signs: Vital Signs Temp Pulse Resp BP BP Pulse Ox 09/17/21 13:35 98.2 F 85 18 102/62 99 09/17/21 08:43 97.9 F 75 18 102/67 100 09/17/21 04:38 98.4 F 73 20 96/64 96 09/17/21 00:58 98.2 F 75 20 91/60 97 09/16/21 20:40 98.8 F 72 20 108/70 96 09/16/21 19:08 74 107/69 09/16/21 18:53 76 115/71 09/16/21 18:38 85 116/69 09/16/21 18:23 86 112/68 09/16/21 18:08 80 115/66 09/16/21 18:00 98 F 20 09/16/21 17:28 99.1 F Intake and Output 09/17/21 09/17/21 09/17/21 06:59 14:59 22:59 Intake Total 240 720 Output Total 900 Balance -660 720 Intake: Oral 240 480 Intake, Free Water 240 Output: Urine 900 Void 900 Other: Total, Intake Amount 240 360 Total, Output Amount 300 # Voids Void 2 - Exam Breasts: Present: deferred Cardiovascular: Present: Regular rate Lungs: Present: Clear to auscultation Abdomen: Present: soft Vulva: both: normal Uterus: Present: fundal height below umbilicus Extremities: Present: normal Deep Tendon Reflex Grade: Normal +2
--- NOTE | 2021-09-17 15:16 | Discharge Summary ---
Providers - Providers Date of Admission: 09/16/21 16:41 Date of discharge: 09/17/21 Attending physician: SANTO HILL Primary care physician: SANTO HILL Hospitalization Reason for admission: active labor Delivery: Laceration: 1st degree Other procedures: none complications: none Discharge diagnosis: IUP at term delivered baby: female Condition at discharge: Good Disposition: 01 HOME / SELF CARE / HOMELESS Plan - Provider Discharge Summary Activity: no sex for 6 weeks, no strenuous exercise Additional instructions: [] Smoking cessation referral if applicable(refer to patient education folder for contact #) [] Refer to [facility]'s [facility] Booklet Call your doctor immediately for: * Fever > 100.5 * Heavy vaginal bleeding ( >1 pad per hour) * Severe persistent headache * Shortness of breath * Reddened, hot, painful area to leg or breast * Drainage or odor from incision. * Keep incision clean and dry at all times and follow doctor's instructions regarding bathing/showering - Follow up plan Follow up: SANTO HILL MD [Primary Care Provider] - 6 Weeks
[2021-09-18] MEDS: IBUPROFEN 800 MG TAB PO SCH (00:26)
[2021-09-18] MEDS: DOCUSATE SODIUM 100 MG CAP PO SCH ×2 (00:26→11:00)
[2021-09-18] MEDS: PRENATAL VIT27-FE FUMARATE-FOLIC ACID VIT TAB PO SCH (11:00)
[2021-09-18 11:40] VITALS: BP 104/77
== END 2021-09-18 11:50 | disposition home or self-care (01) | DRG 807 ==
LOC: TRG 16:40 → APU 16:40 → LD 16:41 → APU 16:55 → LD 17:38 → TRG 18:20 → OB 21:11
PROVIDERS: ADMIT Obstetrics & Gynecology; ATTEND Obstetrics & Gynecology
PROC: 10E0XZZ Delivery of Products of Conception, External Approach (ICD-10-PCS; principal; 2021-09-16)
PROC: 0KQM0ZZ Repair Perineum Muscle, Open Approach (ICD-10-PCS; 2021-09-16)
DX: O34.211 Maternal care for low transverse scar from previous cesarean delivery (principal); Z37.0 Single live birth; Z3A.39 39 weeks gestation of pregnancy; O70.1 Second degree perineal laceration during delivery
CPT/HCPCS: 36415; 85014; 85018; G0378